=== PATIENT | female | born 1940 | race Caucasian/White ===

== ENCOUNTER 2018-11-10 07:04 | Day surgery (SDC) | payer OTHER ==
[~2018-11-10 07:04] MED LIST: COZAAR50 MG PO; TRAVATAN Z5 ML OP; ZOCOR20 MG PO
== END 2018-11-10 17:39 | disposition home or self-care (01) ==
LOC: CIR.AMB 07:04
DX: C02.8 Malignant neoplasm of overlapping sites of tongue (principal); C44.201 Unspecified malignant neoplasm of skin of unspecified ear and external auricular canal